=== PATIENT | male | born 1940 | race Caucasian/White ===

== ENCOUNTER 2017-03-24 13:33 | Emergency (ER) | payer OTHER ==
[~2017-03-24] VITALS: Ht 177.8 cm; Wt 114.0 kg
[2017-03-24 13:35] VITALS: BP 114/59; PULSE 70; RESP 18; TEMP 97.5; O2SAT 100
[2017-03-24 13:45] VITALS: RESP 18; O2SAT 100
[2017-03-24] MEDS ORDERED: SODIUM CHLORID 0.9% 500 ML INJ 500 ML IV ONE (13:45)
[2017-03-24] MEDS ORDERED: ONDANSETRON HCL 4 MG/2 ML VIAL IVP ONE (13:45)
[2017-03-24] MEDS ORDERED: SODIUM CHLORIDE 0.9% FLUSH 10 ML FLUSH IVF PRN (13:45)
--- NOTE | 2017-03-24 13:58 | PD ---
HPI Chief Complaint: Syncope/Near-Syncope Time Seen by Provider: 13:45 Travel History International Travel<30 days: No Contact w/Intl Traveler<30days: No Traveled to known affect area: No History of Present Illness HPI The patient is a 76-year-old male who presents to the emergency department for near syncope and lightheadedness. The patient states he was outside, working in the heat, putting on hurricane shutters when he became somewhat weak. The patient states he felt fatigued working outside in the heat , became lightheaded, dizzy, diaphoretic, and nauseous to his stomach. The patient denied any chest pain, shortness of breath, or vomiting. The patient states he went into the garage where a fan could blow on him, was sitting down, and his called 911. The patient thinks he may have had a syncopal episode while lying in the chair, but denies falling out of the chair and striking his head. He denies any trauma. He denies any headache, neck pain, chest pain, or shortness of breath. The patient was noted to have a low blood pressure with a systolic in the 70s when EMS arrived, he responded to IV fluids in route and upon arrival his blood pressure was 114/59. The patient states he had a checkup by his associate director career services, Dr. Ferreira one month ago which was unremarkable. The patient states she is currently asymptomatic except for mild weakness and coolness after receiving IV fluids. PFSH Past Medical History Cardiovascular Problems: Yes Diabetes: Yes Respiratory: Yes Past Surgical History Narrative Surgical Noncontributory Social History Tobacco Use: No Allergies-Medications (Allergen,Severity, Reaction): Coded Allergies: No Known Allergies (Unverified , 03/24/17) Reported Meds & Prescriptions Reported Meds & Active Scripts Active Reported Ventolin Hfa 18 GM Inh (Albuterol Sulfate) 90 Mcg/Act Aer 2 Puff INH Q6H PRN Omeprazole 20 Mg Tab 20 Mg PO DAILY Colchicine 0.6 Mg Cap 0.6 Mg PO DAILY Metformin (Metformin HCl) 500 Mg Tab 500 Mg PO DAILY With a meal Lovastatin 40 Mg Tab 40 Mg PO AC DINNER Hydralazine (Hydralazine HCl) 100 Mg Tab 25 Mg PO TID Take with meals Aspirin 81 Mg Chew 81 Mg CHEW DAILY Lisinopril 40 Mg Tab 40 Mg PO BID Hydrochlorothiazide 25 Mg Tab 25 Mg PO DAILY Bumetanide 1 Mg Tab 1 Mg PO EVERY OTHER DAY Amlodipine (Amlodipine Besylate) 10 Mg Tab 10 Mg PO DAILY Review of Systems Except as stated in HPI: all other systems reviewed are Neg Eyes: No: Blurred Vision HENT: Positive: Lightheadedness, No: Headaches Cardiovascular: Positive: Diaphoresis, Syncope, No: Chest Pain or Discomfort Respiratory: No: Shortness of Breath Gastrointestinal: Positive: Nausea, No: Vomiting Neurologic: Positive: Dizziness, Syncope Physical Exam Narrative GENERAL: Awake, alert, pleasant 76-year-old male who appears his stated age and is in no acute respiratory distress. SKIN: Focused skin assessment slightly cool to the touch. HEAD: Atraumatic. Normocephalic. EYES: Pupils equal and round. No scleral icterus. No injection or drainage. ENT: No nasal bleeding or discharge. Mucous membranes pink and moist. NECK: Trachea midline. No JVD. CARDIOVASCULAR: Regular rate and rhythm. No murmur appreciated. RESPIRATORY: No accessory muscle use. Clear to auscultation. Breath sounds equal bilaterally. GASTROINTESTINAL: Abdomen soft, non-tender, nondistended. No rebound tenderness. Well-healed scar. MUSCULOSKELETAL: No obvious deformities. No clubbing. No cyanosis. No edema. NEUROLOGICAL: Awake and alert. No obvious cranial nerve deficits. Motor grossly within normal limits. Normal speech. Nonfocal. Oriented 4. Follows commands without difficulty. PSYCHIATRIC: Appropriate mood and affect; insight and judgment normal. Data Data Last Documented VS Vital Signs Date Time Temp Pulse Resp B/P (MAP) Pulse Ox O2 Delivery O2 Flow Rate FiO2 03/24/17 13:45 70 18 100 Room Air 03/24/17 13:35 97.5 114/59 (77) Orders Orders Complete Blood Count With Diff (03/24/17 13:45) Comprehensive Metabolic Panel (03/24/17 13:45) Magnesium (Mg) (03/24/17 13:45) Ckmb (Isoenzyme) Profile (03/24/17 13:45) Troponin I (03/24/17 13:45) Ecg Monitoring (03/24/17 13:45) Iv Access Insert/Monitor (03/24/17 13:45) Oximetry (03/24/17 13:45) Ondansetron Inj (Zofran Inj) (03/24/17 13:45) Sodium Chloride 0.9% Flush (Ns Flush) (03/24/17 13:45) Orthostatic Vital Signs (03/24/17 13:45) Sodium Chlorid 0.9% 500 Ml Inj (Ns 500 M (03/24/17 13:45) CKMB (03/24/17 13:50) CKMB% (03/24/17 13:50) Labs Laboratory Tests Test 03/24/17 13:50 White Blood Count 10.8 TH/MM3 Red Blood Count 4.08 MIL/MM3 Hemoglobin 12.9 GM/DL Hematocrit 37.1 % Mean Corpuscular Volume 90.9 FL Mean Corpuscular Hemoglobin 31.5 PG Mean Corpuscular Hemoglobin Concent 34.7 % Red Cell Distribution Width 12.9 % Platelet Count 334 TH/MM3 Mean Platelet Volume 8.0 FL Neutrophils (%) (Auto) 47.6 % Lymphocytes (%) (Auto) 40.3 % Monocytes (%) (Auto) 9.1 % Eosinophils (%) (Auto) 1.9 % Basophils (%) (Auto) 1.1 % Neutrophils # (Auto) 5.1 TH/MM3 Lymphocytes # (Auto) 4.4 TH/MM3 Monocytes # (Auto) 1.0 TH/MM3 Eosinophils # (Auto) 0.2 TH/MM3 Basophils # (Auto) 0.1 TH/MM3 CBC Comment DIFF FINAL Differential Comment Blood Urea Nitrogen 30 MG/DL Creatinine 1.90 MG/DL Random Glucose 113 MG/DL Total Protein 7.5 GM/DL Albumin 3.7 GM/DL Calcium Level 9.4 MG/DL Magnesium Level 2.4 MG/DL Alkaline Phosphatase 61 U/L Aspartate Amino Transf (AST/SGOT) 34 U/L Alanine Aminotransferase (ALT/SGPT) 23 U/L Total Bilirubin 0.8 MG/DL Sodium Level 138 MEQ/L Potassium Level 4.1 MEQ/L Chloride Level 102 MEQ/L Carbon Dioxide Level 25.4 MEQ/L Anion Gap 11 MEQ/L Estimat Glomerular Filtration Rate 35 ML/MIN Total Creatine Kinase 383 U/L Creatine Kinase MB 3.7 NG/ML Creatine Kinase MB % 1.0 % Troponin I LESS THAN 0.02 NG/ML MDM Medical Decision Making Medical Screen Exam Complete: Yes Emergency Medical Condition: Yes Medical Record Reviewed: Yes Interpretation(s) EKG reveals sinus bradycardia with sinus arrhythmia and a heart rate of 57. No ischemic changes noted. Laboratory Tests Test 03/24/17 13:50 White Blood Count 10.8 TH/MM3 Red Blood Count 4.08 MIL/MM3 Hemoglobin 12.9 GM/DL Hematocrit 37.1 % Mean Corpuscular Volume 90.9 FL Mean Corpuscular Hemoglobin 31.5 PG Mean Corpuscular Hemoglobin Concent 34.7 % Red Cell Distribution Width 12.9 % Platelet Count 334 TH/MM3 Mean Platelet Volume 8.0 FL Neutrophils (%) (Auto) 47.6 % Lymphocytes (%) (Auto) 40.3 % Monocytes (%) (Auto) 9.1 % Eosinophils (%) (Auto) 1.9 % Basophils (%) (Auto) 1.1 % Neutrophils # (Auto) 5.1 TH/MM3 Lymphocytes # (Auto) 4.4 TH/MM3 Monocytes # (Auto) 1.0 TH/MM3 Eosinophils # (Auto) 0.2 TH/MM3 Basophils # (Auto) 0.1 TH/MM3 CBC Comment DIFF FINAL Differential Comment Blood Urea Nitrogen 30 MG/DL Creatinine 1.90 MG/DL Random Glucose 113 MG/DL Total Protein 7.5 GM/DL Albumin 3.7 GM/DL Calcium Level 9.4 MG/DL Magnesium Level 2.4 MG/DL Alkaline Phosphatase 61 U/L Aspartate Amino Transf (AST/SGOT) 34 U/L Alanine Aminotransferase (ALT/SGPT) 23 U/L Total Bilirubin 0.8 MG/DL Sodium Level 138 MEQ/L Potassium Level 4.1 MEQ/L Chloride Level 102 MEQ/L Carbon Dioxide Level 25.4 MEQ/L Anion Gap 11 MEQ/L Estimat Glomerular Filtration Rate 35 ML/MIN Total Creatine Kinase 383 U/L Creatine Kinase MB 3.7 NG/ML Creatine Kinase MB % 1.0 % Troponin I LESS THAN 0.02 NG/ML Differential Diagnosis Differential diagnosis includes vasovagal syncope, dehydration, heatstroke, heat exhaustion, deconditioning, acute coronary syndrome, arrhythmia, electrolyte abnormality. Narrative Course IV was established, labs are drawn and sent, and the patient was placed on cardiac telemetry monitoring and continuous pulse oximetry monitoring. EKG was ordered and interpreted. The patient received 800 cc of IV fluids prior to arrival, his blood pressure upon arrival was 114/59. His symptoms did improve except for generalized weakness. The patient was administered another IV fluid bolus of 500 cc. the patient's blood pressure came up to 128/66. The patient was reevaluated at 2:45 PM, his symptoms had resolved. He was sat up at bedside, his heart rate was in the 60s, went into the 70s, but his symptoms had significantly improved. He was given a trial of ambulation. It appears the patient most likely had a vagal episode working in the heat with mild heat exhaustion and underlying dehydration. There is no evidence of arrhythmia. Patient will be provided a copy of his lab results at discharge. He is advised to drink plenty fluids to stay hydrated and follow-up with his primary physician and associate director career services. Diagnosis Primary Impression: Near syncope Additional Impression: Vagal reaction Patient Instructions: General Instructions Additional Instructions: Please provide the patient a copy of his labs at discharge. Follow-up with your primary physician. Return if symptoms worsen or progress. Plenty of fluids to stay hydrated. Avoid extreme heat during the middle of the day. Med/Other Pt SpecificInfo: No Change to Meds Disposition: 01 DISCHARGE HOME Condition: Stable Kevon Nichole MD Mar 24, 2017 13:58
[2017-03-24 14:13] LABS: AUTOMATED NEUTROPHIL # 5.1 TH/MM3 (1.8-7.7); BASOPHIL # 0.1 TH/MM3 (0-0.2); BASOPHIL % 1.1 % (0.0-2.0); EOSINOPHIL # 0.2 TH/MM3 (0-0.4); EOSINOPHIL % 1.9 % (0.0-4.0); HEMATOCRIT 37.1 % (39.0-51.0); HEMO FLAGS DIFF FINAL; LYMPH % 40.3 % (9.0-44.0); LYMPHOCYTE # 4.4 TH/MM3 (1.0-4.8); MEAN CELL VOLUME 90.9 FL (80.0-100.0); MEAN CORPUSCULAR HEMOGLOBIN 31.5 PG (27.0-34.0); MEAN CORPUSCULAR HGB CONC 34.7 % (32.0-36.0); MONO % 9.1 % (0.0-8.0); NEUT % 47.6 % (16.0-70.0); PLATELET COUNT 334 TH/MM3 (150-450); RED BLOOD COUNT 4.08 MIL/MM3 (4.50-5.90); RED CELL DISTRIBUTION WIDTH 12.9 % (11.6-17.2); WHITE BLOOD COUNT 10.8 TH/MM3 (4.0-11.0)
[2017-03-24] MEDS ORDERED: ASPI81CH CHEW (14:18)
[2017-03-24] MEDS ORDERED: VENTAER INH (14:18)
[2017-03-24] MEDS ORDERED: COLC1CAP3 PO (14:18)
[2017-03-24] MEDS ORDERED: HYDR-3801 PO (14:18)
[2017-03-24] MEDS ORDERED: METF500T PO (14:18)
[2017-03-24] MEDS ORDERED: LOVA40TA PO (14:18)
[2017-03-24] MEDS ORDERED: OMEP20TA PO (14:18)
[2017-03-24] MEDS ORDERED: AMLO10TA2 PO (14:18)
[2017-03-24] MEDS ORDERED: BUME1TAB PO (14:18)
[2017-03-24] MEDS ORDERED: HYDR25TA5 PO (14:18)
[2017-03-24] MEDS ORDERED: LISI40TA PO (14:18)
[2017-03-24 14:19] LABS: CHLORIDE 102 MEQ/L (98-107); POTASSIUM 4.1 MEQ/L (3.5-5.1); SODIUM (NA) 138 MEQ/L (136-145)
[2017-03-24 14:23] LABS: ANION GAP 11 MEQ/L (5-15); BICARBONATE 25.4 MEQ/L (21.0-32.0); BLOOD UREA NITROGEN 30 MG/DL (7-18); MAGNESIUM 2.4 MG/DL (1.5-2.5)
[2017-03-24 14:26] LABS: ALT (GPT) 23 U/L (12-78); AST (GOT) 34 U/L (15-37); GLOMERULAR FILTRATION RATE 35 ML/MIN (>89)
[2017-03-24 14:28] LABS: TOTAL BILIRUBIN ADULT 0.8 MG/DL (0.2-1.0)
[2017-03-24 14:29] LABS: ALKALINE PHOSPHATASE 61 U/L (45-117); CREATINE KINASE 383 U/L (39-308)
[2017-03-24 14:41] LABS: CKMB 3.7 NG/ML (0.5-3.6)
[2017-03-24 15:05] VITALS: BP 124/70; PULSE 70; RESP 16; O2SAT 100
[2017-03-24 15:20] VITALS: BP_SYST 130; BP_SYST 132; BP_SYST 142; BP_DIAS 65; BP_DIAS 67; BP_DIAS 71
--- NOTE | 2017-03-26 09:31 | EKG ---
Date Performed: 03/24/2017 Time Performed: 13:39:53 PTAGE: 76 years EKG: SINUS BRADYCARDIA WITH SINUS ARRHYTHMIA MODERATE INTRAVENTRICULAR CONDUCTION DELAY Compared to prior tracing no significant change BORDERLINE ECG PREVIOUS TRACING : 09/14/2002 05.47 DOCTOR: Jovan Deleon Interpretating Date/Time 03/26/2017 09:28:28
--- NOTE | 2017-04-06 12:51 | EKG ---
Date Performed: 03/24/2017 Time Performed: 13:39:53 PTAGE: 76 years EKG: SINUS BRADYCARDIA WITH SINUS ARRHYTHMIA MODERATE INTRAVENTRICULAR CONDUCTION DELAY Compared to prior tracing no significant change BORDERLINE ECG PREVIOUS TRACING : 09/14/2002 05.47 DOCTOR: Jovan Deleon Interpretating Date/Time 04/06/2017 12:51:32
== END 2017-03-24 15:51 | disposition home or self-care (01) ==
LOC: PHED 13:33
DX: R55 Syncope and collapse (principal); E11.9 Type 2 diabetes mellitus without complications; Z79.84 Long term (current) use of oral hypoglycemic drugs
CPT/HCPCS: 80053; 82550; 82552; 83735; 84484; 85025; 93005; 96361; 96374; 99284; J2405; J7040